=== PATIENT | male | born 2000 | race Two or more races ===

== ENCOUNTER 2018-01-25 00:23 | Emergency (ER) | payer MEDICAID ==
[~2018-01-25] VITALS: Ht 172.7 cm; Wt 70.8 kg
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
--- NOTE | 2018-01-25 02:15 | NUR ---
EMT AT BEDSIDE FOR WOUNDCARE.
--- NOTE | 2018-01-25 02:20 | NUR ---
18G IV TO L AC X 1 ATTEMPT USING ASEPTIC TECH, BLOOD HANDED OVER TO THE LAB AT BEDSIDE. IV FLUSHES EASILY WITH NS, NO S/S OF INFILTRATION NOTED.
[2018-01-25] MEDS ORDERED: ONDANSETRON HCL/PF 4 MG/2 ML VIAL ONE (02:24)
[2018-01-25] MEDS ORDERED: MORPHINE SULFATE INJ 4 MG/ML DISP.SYRIN ONE ×2 (02:24→04:06)
[2018-01-25] MEDS ORDERED: IOHEXOL-300 100 ML VIAL IV ONE (02:24)
[2018-01-25] MEDS ORDERED: IV NS 0.9% 250 ML IV ONE (02:25)
[2018-01-25] MEDS ORDERED: CT SWABBABLE VALVE TRANS SET 1 EA INFUS.SET MC ONE (02:25)
[2018-01-25] MEDS ORDERED: IV NS 0.9% 500 ML BAG IV ONE (02:30)
[2018-01-25] MEDS ORDERED: ONDANSETRON HCL/PF 4 MG/2 ML VIAL IVP ONE (02:30)
[2018-01-25] MEDS ORDERED: MORPHINE SULFATE INJ 2 MG/ML DISP.SYRIN IV ONE ×2 (02:30→04:30)
[2018-01-25 02:33] LABS: BASOPHILS % (AUTO) 0.2 % (0.0-2.0); EOSINOPHILS % (AUTO) 0.4 % (0.0-6.0); HEMATOCRIT 39 % (39-51); HEMOGLOBIN 13.5 g/dL (13.5-17.5); LYMPHOCYTES # (AUTO) 1.1 /CMM (0.8-4.8); LYMPHOCYTES % (AUTO) 7.5 % (20.0-44.0); MEAN CORPUSCULAR HGB CONC 35 g/dl (31.0-36.0); MEAN CORPUSCULAR VOLUME 89 fL (80-96); MONOCYTES # (AUTO) 0.8 /CMM (0.1-1.30); MONOCYTES % (AUTO) 5.1 % (2.0-12.0); NEUTROPHILS # (AUTO) 12.9 /CMM (1.8-8.9); NEUTROPHILS % (AUTO) 86.8 % (43.0-81.0); PLATELET COUNT (AUTO) 272 /CMM (150-450); RED BLOOD CELL COUNT(AUTO) 4.39 MIL/uL (4.5-6.0); WHITE BLOOD COUNT (AUTO) 14.9 K/uL (4.3-11.0)
--- NOTE | 2018-01-25 02:37 | NUR ---
PT TO CT VIA STRETCHER. VSS.
--- NOTE | 2018-01-25 02:50 | NUR ---
PT BACK FROM CT.
[2018-01-25 02:54] LABS: CALCIUM, SERUM 9.1 mg/dL (8.5-10.1); CREATININE 1.1 mg/dL (0.6-1.3); POTASSIUM 3.9 mmol/L (3.5-5.1)
[2018-01-25 02:56] LABS: INR 1.03 (0.87-1.13)
[2018-01-25 02:59] LABS: ALBUMIN 4.4 g/dL (3.4-5.0); BILIRUBIN,DIRECT 0.1 mg/dL (0.0-0.2); BILIRUBIN,TOTAL 0.6 mg/dL (0.2-1.0); TOTAL PROTEIN, SERUM 7.9 g/dL (6.4-8.2)
--- NOTE | 2018-01-25 03:20 | NUR ---
LACERATION TRAY SETUP AT BEDSIDE FOR
--- NOTE | 2018-01-25 03:22 | NUR ---
CALLED [facility] AND SPOKE TO MARKETING COPYWRITER [phone]. "WILL CALL ASSISTANT TENNIS PROFESSIONAL"
[2018-01-25] MEDS ORDERED: LIDOCAINE 1%-EPI 1:100,000 20 ML VIAL ONE (03:44)
--- NOTE | 2018-01-25 03:45 | NUR ---
MD AT BEDSIDE TO SUTURE.
--- NOTE | 2018-01-25 04:17 | NUR ---
4X4 GAUZE AND PAPER TAPE PLACED TO R FLANK. DRESSING C/D/I.
--- NOTE | 2018-01-25 04:25 | NUR ---
IV removed. Catheter intact and site benign. Pressure and 4x4 applied to site. No bleeding noted. Patient discharged with mother to home in stable condition. Written and verbal after care instructions given. Patient verbalizes understanding of instruction, patient instructed not to drive. Patient is awake and alert to self, day, and place. Patient ambulatory with a steady gait.
[2018-01-25 04:28] VITALS: BP 115/61
[2018-01-25] MEDS ORDERED: LIDOCAINE 1%-EPI 1:100,000 50 ML VIAL IJ ONE (04:30)
== END 2018-01-25 04:29 | disposition home or self-care (01) ==
LOC: ER 00:25
DX: S32.391A Other fracture of right ilium, initial encounter for closed fracture (principal); S31.113A Laceration without foreign body of abdominal wall, right lower quadrant without penetration into peritoneal cavity, initial encounter; J45.909 Unspecified asthma, uncomplicated; V28.3XXA Person boarding or alighting a motorcycle injured in noncollision transport accident, initial encounter; Y93.89 Activity, other specified; Y92.413 State road as the place of occurrence of the external cause; Y99.8 Other external cause status
CPT/HCPCS: 12001; 36415; 71045; 74160; 80048; 80076; 85025; 85730; 86850; 96374; 96375; 96376; 99285; A4606; A6402 ×2; J2270 ×2; J2405; J3490; J7040; J7050; Q9967; Z7610

== ENCOUNTER 2021-05-17 17:01 | Emergency (ER) | payer MEDICAID ==
[~2021-05-17] VITALS: Ht 170.2 cm; Wt 70.3 kg
[2021-05-17 17:36] VITALS: BP 141/81
[2021-05-17] MEDS ORDERED: LIDOCAINE /MPF 1% VIAL 5 ML VIAL ONE (17:43)
[2021-05-17] MEDS ORDERED: LIDOCAINE 2% 20 ML MDV TP ONE (18:00)
[2021-05-17] MEDS ORDERED: IBUPROFEN 600 MG TABLET PO ONE (18:00)
[2021-05-17] MEDS ORDERED: IBUPROFEN 400 MG TABLET ONE (18:04)
[2021-05-17] MEDS ORDERED: MUPI22OI2 TP (18:43)
[2021-05-17] MEDS ORDERED: IBUP-1955 PO (18:43)
== END 2021-05-17 19:05 | disposition home or self-care (01) ==
LOC: ER 17:01
DX: S61.412A Laceration without foreign body of left hand, initial encounter (principal); J45.909 Unspecified asthma, uncomplicated; W26.0XXA Contact with knife, initial encounter; Y93.89 Activity, other specified; Y92.89 Other specified places as the place of occurrence of the external cause; Y99.8 Other external cause status
CPT/HCPCS: 12001; 99283; A6403 ×2; J3490

== ENCOUNTER 2021-06-01 14:48 | Emergency (ER) | payer MEDICAID ==
[~2021-06-01] VITALS: Ht 170.2 cm; Wt 72.6 kg
[~2021-06-01 14:48] MED LIST: IBUP-1955 PO; MUPI22OI2 TP
[2021-06-01 14:59] VITALS: BP 128/91
--- NOTE | 2021-06-01 15:06 | NUR ---
THE PATIENT PRESENTED TO ER FOR REMOVAL OF SUTURES ON LEFT WRIST. NO S/S INFECTION NOTED. WILL CONTINUE TO MONITOR THE PATIENT.
== END 2021-06-01 17:08 | disposition home or self-care (01) ==
LOC: ER 14:51
DX: S61.012D Laceration without foreign body of left thumb without damage to nail, subsequent encounter (principal); J45.909 Unspecified asthma, uncomplicated; Z79.899 Other long term (current) drug therapy; W26.0XXD Contact with knife, subsequent encounter